=== PATIENT | male | born 1950 | race Two or more races ===

== ENCOUNTER 2023-04-10 12:45 | Inpatient (IN) | payer OTHER ==
[~2023-04-10] VITALS: Ht 175.3 cm; Wt 84.4 kg
[~2023-04-10 12:45] MED LIST: REGLAN 10 MG PO
[2023-04-11] MEDS ORDERED: NP THYROID15 MG PO (17:21)
[2023-04-11] MEDS ORDERED: COZAAR25 MG PO (17:26)
[2023-04-16] MEDS ORDERED: METRONIDAZOLE/SODIUM CHLORIDE 500 MG/100 ML PIGGYBACK IV ONE ×2 (11:26→16:30)
[2023-04-16] MEDS ORDERED: SYNTHROID75 MCG (11:32)
[2023-04-16] MEDS ORDERED: AMLODIPINE-ATO1 EAC1 (11:33)
[2023-04-16] MEDS ORDERED: ZESTRIL2.5 MG (11:34)
[2023-04-16] MEDS ORDERED: LIDOCAINE HCL 1%/Epi 20ML VIAL IJ ONE (14:13)
[2023-04-16] MEDS ORDERED: BUPIVACAINE HCL/PF 0.5% 30ML ML ONE (14:13)
[2023-04-16] MEDS ORDERED: POVIDONE-IODINE 118 ML BOTT TOP ONE ×2 (14:53→16:30)
[2023-04-16] MEDS ORDERED: 0.9 % SODIUM CHLORIDE 1,000 ML IV SCH (16:30)
[2023-04-16] MEDS ORDERED: OxyCODONE HCL 5 MG TABLET (ROXICODONE) PO PRN (16:30)
[2023-04-16] MEDS ORDERED: LIDOCAINE HCL/EPINEPHRINE 10 ML VIAL IJ ONE (16:30)
[2023-04-16] MEDS ORDERED: ONDANSETRON HCL 2 MG/ML VIAL IV PRN (16:30)
[2023-04-16] MEDS ORDERED: levoFLOXacin IN DEXTROSE 5 % 5 MG/ML PIGGYBAG IV ONE (16:30)
[2023-04-16] MEDS ORDERED: BUPIVACAINE HCL/PF 0.25% 30ML VIAL InF ONE (16:30)
[2023-04-16] MEDS ORDERED: MORPHINE SULFATE 4 MG/ML VIAL IV PRN (16:30)
[2023-04-16] MEDS ORDERED: GABAPENTIN 300 MG CAPSULE PO SCH (17:00)
[2023-04-16] MEDS ORDERED: ENALAPRILAT DIHYDRATE 1.25 MG/ML VIAL IV PRN (18:30)
[2023-04-16 18:45] LABS: ABG PH 7.419 (7.35-7.45); ABG PO2 136.7 mmHg (80-100); ABG pCO2 38.4 mmHg (35-45); BASE EXCESS 0.1 mmol/l; BICARBONATE 24.3 mmol/l (23-25); SaO2 99.1 %; Tco2 25.5 mmol/l; allen test SATISFACTORY; o2 40 %; puncture site RADIAL LEFT
[2023-04-16] MEDS ORDERED: ACETAMINOPHEN 500 MG GEL..CAP PO SCH (20:00)
[2023-04-16] MEDS ORDERED: FAMOTIDINE/PF 20 MG/2 ML VIAL IV PUSH SCH (21:00)
[2023-04-16] MEDS ORDERED: LISINOPRIL 10 MG TABLET PO SCH (21:00)
[2023-04-17] MEDS ORDERED: PATIENTS OWN MEDICATION (MEDICAMENTO EN PISO) PO SCH ×2 (06:00→09:00)
[2023-04-17 07:06] LABS: HEMATOCRIT 41.7 % (39.0-48.0); HEMOGLOBIN 13.7 g/dL (13-16.00); MEAN CELL VOLUME 82.9 fL (80.0-100.00); MEAN CORPUSCULAR HEMOGLOBIN 27.1 pg (27.00-32.0); MEAN CORPUSCULAR HGB CONC 32.7 g/dl (32.0-36.0); PLATELET COUNT 151 K/uL (150-450); RED BLOOD COUNT 5.03 M/uL (4.00-6.00); RED CELL DISTRIBUTION WIDTH 15.6 % (11.5-14.5)
[2023-04-17 07:14] LABS: ALBUMIN 3.1 gm/dL (3.4-5.0); CALCIUM 8.8 mg/dL (8.5-10.1); CREATININE SERUM 0.94 mg/dL (0.70-1.30); GFR 78.45; POTASSIUM 3.83 mEq/L (3.5-5.1)
[2023-04-17] MEDS ORDERED: AMLODIPINE BESYLATE 5 MG TABLET PO SCH (09:00)
[2023-04-17] MEDS ORDERED: LEVOTHYROXINE SODIUM 75 MCG TABLET PO SCH (09:00)
[2023-04-18 07:14] LABS: HEMATOCRIT 39.4 % (39.0-48.0); HEMOGLOBIN 13.3 g/dL (13-16.00); MEAN CELL VOLUME 82.7 fL (80.0-100.00); MEAN CORPUSCULAR HEMOGLOBIN 27.9 pg (27.00-32.0); MEAN CORPUSCULAR HGB CONC 33.7 g/dl (32.0-36.0); RED BLOOD COUNT 4.76 M/uL (4.00-6.00); RED CELL DISTRIBUTION WIDTH 15.3 % (11.5-14.5)
[2023-04-18 07:25] LABS: CALCIUM 8.4 mg/dL (8.5-10.1); CREATININE SERUM 0.85 mg/dL (0.70-1.30); GFR 88.11; MAGNESIUM 1.8 mg/dL (1.8-2.4); PHOSPHOROUS 2.7 mg/dL (2.5-4.9); POTASSIUM 3.55 mEq/L (3.5-5.1)
[2023-04-18 08:04] LABS: PLATELET COUNT 134 K/uL (150-450)
[2023-04-18] MEDS ORDERED: ENOXAPARIN SODIUM 40 MG/0.4 ML SYRINGE SUBCUTANEO SCH (09:00)
[2023-04-18] MEDS ORDERED: NA PHOS,M-B/NA PHOS,DI-BA 1 BOTTLE ENEMA RECTAL ONE (10:20)
[2023-04-18] MEDS ORDERED: METRONIDAZOLE/SODIUM CHLORIDE 500 MG/100 ML PIGGYBACK IV ONE ×2 (12:28→14:00)
[2023-04-18] MEDS ORDERED: levoFLOXacin IN DEXTROSE 5 % 5 MG/ML PIGGYBAG IV ONE ×2 (12:29→14:00)
[2023-04-18] MEDS ORDERED: CHLORHEXIDINE GLUCONATE 120 ML BOTTLE TOP ONE ×2 (13:12→14:00)
[2023-04-18] MEDS ORDERED: OxyCODONE HCL 5 MG TABLET (ROXICODONE) PO PRN (18:00)
[2023-04-18] MEDS ORDERED: ONDANSETRON HCL 2 MG/ML VIAL IV PRN (18:00)
[2023-04-18] MEDS ORDERED: MORPHINE SULFATE 4 MG/ML CARTRIDGE IV PRN (18:00)
[2023-04-18] MEDS ORDERED: VISTASEAL DUAL APPICATOR 1 EACH APPL TOP ONE (18:16)
[2023-04-18] MEDS ORDERED: THROMBIN,HU/FIBRINOGEN/CALCIUM 10 ML SYRINGE TOP ONE ×2 (18:16→18:30)
[2023-04-18] MEDS ORDERED: SUGAMMADEX SODIUM 200 MG/2 ML VIAL IV ONE (18:57)
[2023-04-18] MEDS ORDERED: ACETAMINOPHEN 500 MG GEL..CAP PO SCH (20:00)
[2023-04-18] MEDS ORDERED: FAMOTIDINE/PF 20 MG/2 ML VIAL IV PUSH SCH (21:00)
[2023-04-19] MEDS ORDERED: METOCLOPRAMIDE HCL 5 MG/ML VIAL IV SCH (01:00)
[2023-04-19] MEDS ORDERED: GABAPENTIN 300 MG CAPSULE PO SCH (01:00)
[2023-04-19 04:31] LABS: HEMATOCRIT 38.6 % (39.0-48.0); HEMOGLOBIN 12.9 g/dL (13-16.00); MEAN CORPUSCULAR HGB CONC 33.4 g/dl (32.0-36.0); PLATELET COUNT 128 K/uL (150-450); RED BLOOD COUNT 4.77 M/uL (4.00-6.00); RED CELL DISTRIBUTION WIDTH 15.6 % (11.5-14.5)
[2023-04-19 07:34] LABS: ALBUMIN 2.3 gm/dL (3.4-5.0); CALCIUM 7.8 mg/dL (8.5-10.1); CREATININE SERUM 0.93 mg/dL (0.70-1.30); GFR 79.42; MAGNESIUM 1.5 mg/dL (1.8-2.4); PHOSPHOROUS 4.2 mg/dL (2.5-4.9); POTASSIUM 3.88 mEq/L (3.5-5.1)
[2023-04-19] MEDS ORDERED: FAMOTIDINE/PF 20 MG/2 ML VIAL ONE (07:49)
[2023-04-19] MEDS ORDERED: ACETAMINOPHEN 500 MG GEL..CAP PO ONE (07:49)
[2023-04-19] MEDS ORDERED: HYOSCYAMINE SULFATE 0.125 MG TAB.SUBL ONE (07:49)
[2023-04-19] MEDS ORDERED: GABAPENTIN 300 MG CAPSULE PO ONE (07:49)
[2023-04-19] MEDS ORDERED: TAMSULOSIN HCL 0.4 MG CAP PO SCH (09:00)
[2023-04-19] MEDS ORDERED: LACTOBACILLUS ACIDOPHILUS 1 CAP CAP PO SCH (09:00)
[2023-04-19] MEDS ORDERED: HYOSCYAMINE SULFATE 0.125 MG TAB.SUBL SL SCH (09:00)
[2023-04-19 10:29] LABS: HEMATOCRIT 37.3 % (39.0-48.0); HEMOGLOBIN 12.5 g/dL (13-16.00); MEAN CELL VOLUME 81.1 fL (80.0-100.00); MEAN CORPUSCULAR HEMOGLOBIN 27.2 pg (27.00-32.0); MEAN CORPUSCULAR HGB CONC 33.5 g/dl (32.0-36.0); RED CELL DISTRIBUTION WIDTH 15.5 % (11.5-14.5)
[2023-04-19 10:30] LABS: PLATELET COUNT 129 K/uL (150-450)
[2023-04-19 11:05] LABS: MANUAL PLATELET COUNT 184
[2023-04-19] MEDS ORDERED: POLYETHYLENE GLYCOL 3350 17 GM BLIST.PACK PO SCH (17:00)
[2023-04-19] MEDS ORDERED: ENOXAPARIN SODIUM 40 MG/0.4 ML SYRINGE SUBCUTANEO SCH (17:00)
[2023-04-20 08:14] LABS: HEMATOCRIT 34.9 % (39.0-48.0); HEMOGLOBIN 11.6 g/dL (13-16.00); MEAN CELL VOLUME 82.6 fL (80.0-100.00); MEAN CORPUSCULAR HEMOGLOBIN 27.4 pg (27.00-32.0); MEAN CORPUSCULAR HGB CONC 33.2 g/dl (32.0-36.0); RED BLOOD COUNT 4.23 M/uL (4.00-6.00); RED CELL DISTRIBUTION WIDTH 15.5 % (11.5-14.5)
[2023-04-20 08:30] LABS: PLATELET COUNT 113 K/uL (150-450)
[2023-04-20] MEDS ORDERED: ENOXAPARIN SODIUM 40 MG/0.4 ML SYRINGE SUBCUTANEO SCH (09:00)
[2023-04-20 09:03] LABS: CALCIUM 8.2 mg/dL (8.5-10.1); CREATININE SERUM 1.03 mg/dL (0.70-1.30); GFR 70.59; MAGNESIUM 1.8 mg/dL (1.8-2.4); PHOSPHOROUS 2.6 mg/dL (2.5-4.9); POTASSIUM 3.96 mEq/L (3.5-5.1)
[2023-04-21 20:43] LABS: HEMATOCRIT 34.9 % (39.0-48.0); HEMOGLOBIN 11.4 g/dL (13-16.00); MEAN CELL VOLUME 82.5 fL (80.0-100.00); MEAN CORPUSCULAR HEMOGLOBIN 26.9 pg (27.00-32.0); MEAN CORPUSCULAR HGB CONC 32.7 g/dl (32.0-36.0); PLATELET COUNT 158 K/uL (150-450); RED BLOOD COUNT 4.23 M/uL (4.00-6.00); RED CELL DISTRIBUTION WIDTH 15.2 % (11.5-14.5)
[2023-04-22 08:02] LABS: HEMATOCRIT 34.2 % (39.0-48.0); HEMOGLOBIN 11.5 g/dL (13-16.00); MEAN CELL VOLUME 80.3 fL (80.0-100.00); MEAN CORPUSCULAR HGB CONC 33.6 g/dl (32.0-36.0); PLATELET COUNT 152 K/uL (150-450); RED BLOOD COUNT 4.26 M/uL (4.00-6.00)
[2023-04-22] MEDS ORDERED: DEXTROSE 10 % IN WATER 500 ML IV SCH (15:15)
[2023-04-22] MEDS ORDERED: AA 4.25%/CAL/LYTES/DEXT 5% 1,000 ML PERIFERAL SCH (17:00)
[2023-04-22 18:07] LABS: CHOL HDL RATIO 2.7 (0-5.0); CREATININE SERUM 0.67 mg/dL (0.70-1.30); GFR 115.95; POTASSIUM 3.23 mEq/L (3.5-5.1)
[2023-04-22] MEDS ORDERED: BENZONATATE 100 MG CAPSULE PO SCH (18:30)
[2023-04-23 05:34] LABS: HEMATOCRIT 33.3 % (39.0-48.0); HEMOGLOBIN 11.1 g/dL (13-16.00); MEAN CELL VOLUME 81.4 fL (80.0-100.00); MEAN CORPUSCULAR HEMOGLOBIN 27.1 pg (27.00-32.0); MEAN CORPUSCULAR HGB CONC 33.3 g/dl (32.0-36.0); PLATELET COUNT 159 K/uL (150-450); RED BLOOD COUNT 4.09 M/uL (4.00-6.00)
[2023-04-23 05:46] LABS: INR 1.03; PARTIAL THROMBOPLASTIN TIME 30.9 SECONDS (22.0-34.0); PROTHROMBIN TIME 10.8 SECONDS (9.0-11.5)
[2023-04-23 05:59] LABS: ALBUMIN 2.2 gm/dL (3.4-5.0); BILIRUBIN TOTAL 0.43 mg/dL (0.3-1.2); BILIRUBIN,CONJUGATED 0.13 mg/dL (0.0-0.2); BILIRUBIN,UNCONJUGATED 0.3 mg/dL (0.0-0.6); CALCIUM 7.8 mg/dL (8.5-10.1); CHOL HDL RATIO 2.8 (0-5.0); CREATININE SERUM 0.63 mg/dL (0.70-1.30); GFR 124.49; GLOBULINA 2.6 G/DL (2.4-3.5); MAGNESIUM 1.8 mg/dL (1.8-2.4); POTASSIUM 3.22 mEq/L (3.5-5.1); TOTAL PROTEIN 4.8 gm/dL (6.4-8.2)
[2023-04-23] MEDS ORDERED: LOPERAMIDE HCL 2 MG CAPSULE PO SCH (09:00)
[2023-04-23] MEDS ORDERED: BENZONATATE 200 MG CAPSULE PO SCH (09:00)
[2023-04-23] MEDS ORDERED: POTASSIUM CHLORIDE 20MEQ/100ML H2O PB IV ONE (11:45)
[2023-04-23] MEDS ORDERED: MAGNESIUM SULFATE IN WATER 50 ML IV ONE (11:45)
[2023-04-24] MEDS ORDERED: OxyCODONE HCL 5 MG TABLET (ROXICODONE) PO PRN (07:15)
[2023-04-24 07:30] LABS: CALCIUM 7.7 mg/dL (8.5-10.1); CREATININE SERUM 0.68 mg/dL (0.70-1.30); GFR 113.99; PHOSPHOROUS 2.4 mg/dL (2.5-4.9); POTASSIUM 3.23 mEq/L (3.5-5.1)
[2023-04-24 07:49] LABS: UREA CLEARANCE 38.6 ML/MIN
[2023-04-24] MEDS ORDERED: PERCOCET 5-3251 EACH PO (08:15)
[2023-04-24] MEDS ORDERED: NEURONTIN300 MG PO (08:16)
[2023-04-24] MEDS ORDERED: IMODIUM A-D2 M2 PO (08:17)
[2023-04-24] MEDS ORDERED: LOPERAMIDE HCL 2 MG CAPSULE PO SCH (09:00)
== END 2023-04-24 14:19 | disposition home or self-care (01) | DRG 329 ==
LOC: SURH 04-16 07:00 → O/R 04-16 08:53 → SURH 04-16 12:45
PROVIDERS: Colon & Rectal Surgery; Internal Medicine Geriatric Medicine; Specialist; ADMIT Surgery; ATTEND Surgery
PROC: 0DJD4ZZ Inspection of Lower Intestinal Tract, Percutaneous Endoscopic Approach (ICD-10-PCS; 2023-04-16)
PROC: BW21YZZ Computerized Tomography (CT Scan) of Abdomen and Pelvis using Other Contrast (ICD-10-PCS; 2023-04-16)
PROC: BW30YZZ Magnetic Resonance Imaging (MRI) of Abdomen using Other Contrast (ICD-10-PCS; 2023-04-16)
PROC: 4A12X4Z Monitoring of Cardiac Electrical Activity, External Approach (ICD-10-PCS; 2023-04-17)
PROC: 0DTP0ZZ Resection of Rectum, Open Approach (ICD-10-PCS; 2023-04-18)
PROC: 0DTN0ZZ Resection of Sigmoid Colon, Open Approach (ICD-10-PCS; 2023-04-18)
PROC: 0DTQ0ZZ Resection of Anus, Open Approach (ICD-10-PCS; 2023-04-18)
PROC: 0DNW0ZZ Release Peritoneum, Open Approach (ICD-10-PCS; 2023-04-18)
PROC: 0T788DZ Dilation of Bilateral Ureters with Intraluminal Device, Via Natural or Artificial Opening Endoscopic (ICD-10-PCS; 2023-04-18)
PROC: 0D1B0Z4 Bypass Ileum to Cutaneous, Open Approach (ICD-10-PCS; principal; 2023-04-18 13:00)
DX: D12.8 Benign neoplasm of rectum (principal); K68.2 Retroperitoneal fibrosis; K62.5 Hemorrhage of anus and rectum; R59.0 Localized enlarged lymph nodes; I10 Essential (primary) hypertension; D64.9 Anemia, unspecified; G47.30 Sleep apnea, unspecified; K66.0 Peritoneal adhesions (postprocedural) (postinfection)
CPT/HCPCS: 72198; 74185

== ENCOUNTER 2023-11-22 12:00 | Inpatient (IN) | payer OTHER ==
[~2023-11-22] VITALS: Ht 175.3 cm; Wt 85.7 kg
[~2023-11-22 12:00] MED LIST changes: +AMLODIPINE-ATO1 EAC1; +AMLODIPINE-OLM1 EACH; +COZAAR25 MG PO; +IMODIUM A-D2 M2 PO; +NEURONTIN300 MG PO; +NP THYROID15 MG PO; +PERCOCET 5-3251 EACH PO; +SYNTHROID75 MCG; +TRAM1TAB98 PO; +ZESTRIL2.5 MG; +ZESTRIL20 MG PO
[2023-11-22] MEDS ORDERED: ATORVASTATIN CA10 MG PO (13:49)
[2023-11-22] MEDS ORDERED: AMLODIPINE-OLM1 EACH PO (13:49)
[2023-11-26] MEDS ORDERED: LISINOPRIL20 MG (08:56)
[2023-11-26] MEDS ORDERED: levoFLOXacin IN DEXTROSE 5 % 5 MG/ML PIGGYBAG IV ONE (09:30)
[2023-11-26] MEDS ORDERED: METRONIDAZOLE/SODIUM CHLORIDE 200 ML IV ONE (09:30)
[2023-11-26] MEDS ORDERED: SUGAMMADEX SODIUM 200 MG/2 ML VIAL IV ONE (10:45)
[2023-11-26] MEDS ORDERED: RINGERS SOLUTION,LACTATED 1,000 ML IV SCH (11:00)
[2023-11-26] MEDS ORDERED: OxyCODONE HCL 5 MG TABLET (ROXICODONE) PO PRN (11:00)
[2023-11-26] MEDS ORDERED: MORPHINE SULFATE 4 MG/ML CARTRIDGE IV PRN (11:00)
[2023-11-26] MEDS ORDERED: ONDANSETRON HCL 2 MG/ML VIAL IV PRN (11:00)
[2023-11-26] MEDS ORDERED: HYOSCYAMINE SULFATE 0.125 MG TAB.SUBL SL PRN (11:00)
[2023-11-26] MEDS ORDERED: MORPHINE SULFATE 4 MG/ML VIAL IV ONE ×2 (11:25→11:55)
[2023-11-26] MEDS ORDERED: KETOROLAC TROMETHAMINE 30 MG VIAL IV SCH (12:00)
[2023-11-26] MEDS ORDERED: SIMETHICONE 125 MG CAPSULE PO SCH (13:00)
[2023-11-26] MEDS ORDERED: ACETAMINOPHEN 500 MG GEL..CAP PO SCH (14:00)
[2023-11-26 14:20] VITALS: BP 163/74; O2SAT 97
[2023-11-26 16:52] VITALS: BP 137/64; O2SAT 95
[2023-11-26] MEDS ORDERED: GABAPENTIN 300 MG CAPSULE PO SCH (17:00)
[2023-11-26] MEDS ORDERED: METOCLOPRAMIDE HCL 5 MG/ML VIAL IV SCH (17:00)
[2023-11-26] MEDS ORDERED: ENALAPRILAT DIHYDRATE 1.25 MG/ML VIAL IV PRN (18:15)
[2023-11-26 19:40] LABS: ABG PH 7.386 (7.35-7.45); ABG PO2 66.3 mmHg (80-100); ABG pCO2 44.5 mmHg (35-45); BASE EXCESS 0.7 mmol/l; BICARBONATE 26.1 mmol/l (23-25); SaO2 92.5 %; Tco2 27.4 mmol/l
[2023-11-26 19:55] LABS: allen test SATISFACTORY; o2 21 %; puncture site RADIAL RIGHT
[2023-11-26] MEDS ORDERED: FAMOTIDINE/PF 20 MG/2 ML VIAL IV PUSH SCH (21:00)
[2023-11-27 00:37] VITALS: BP 179/83; O2SAT 98
[2023-11-27] MEDS ORDERED: SYNTHROID BRAND ONLY PO SCH (06:00)
[2023-11-27 06:27] LABS: HEMATOCRIT 36.6 % (39.0-48.0); HEMOGLOBIN 12.3 g/dL (13-16.00); MEAN CELL VOLUME 82.8 fL (80.0-100.00); MEAN CORPUSCULAR HEMOGLOBIN 27.7 pg (27.00-32.0); MEAN CORPUSCULAR HGB CONC 33.5 g/dl (32.0-36.0); RED BLOOD COUNT 4.43 M/uL (4.00-6.00); RED CELL DISTRIBUTION WIDTH 17.4 % (11.5-14.5)
[2023-11-27 06:29] LABS: PLATELET COUNT 98 K/uL (150-450)
[2023-11-27 06:57] LABS: ALBUMIN 3.1 gm/dL (3.4-5.0); CALCIUM 7.9 mg/dL (8.5-10.1); CREATININE SERUM 0.92 mg/dL (0.70-1.30); GFR 80.2; MAGNESIUM 1.6 mg/dL (1.8-2.4); PHOSPHOROUS 2.6 mg/dL (2.5-4.9); POTASSIUM 3.4 mEq/L (3.5-5.1)
[2023-11-27] MEDS ORDERED: NEURONTIN300 MG PO (08:08)
[2023-11-27] MEDS ORDERED: CELECOXIB200 MG PO (08:08)
[2023-11-27 08:59] VITALS: BP 144/63; O2SAT 95
[2023-11-27] MEDS ORDERED: AMLODIPINE BESYLATE 5 MG TABLET PO SCH (09:00)
[2023-11-27] MEDS ORDERED: LISINOPRIL 10 MG TABLET PO SCH (09:00)
[2023-11-27] MEDS ORDERED: ATORVASTATIN CALCIUM 20 MG TABLET PO SCH (17:00)
[2023-11-27] MEDS ORDERED: ENOXAPARIN SODIUM 40 MG/0.4 ML SYRINGE SUBCUTANEO SCH (17:00)
[2023-11-28] MEDS ORDERED: PATIENTS OWN MEDICATION (MEDICAMENTO EN PISO) PO SCH (06:00)
[2023-11-28] MEDS ORDERED: ENOXAPARIN SODIUM 40 MG/0.4 ML SYRINGE SUBCUTANEO SCH (09:00)
== END 2023-11-27 16:14 | disposition home or self-care (01) | DRG 337 ==
LOC: SURG 11-26 06:25 → O/R 11-26 06:25 → SURG 11-26 11:41 → SURH 11-26 12:00 → SURG 11-27 16:14
PROVIDERS: Internal Medicine Geriatric Medicine; ADMIT Surgery; ATTEND Surgery
PROC: 0DN84ZZ Release Small Intestine, Percutaneous Endoscopic Approach (ICD-10-PCS; 2023-11-26)
PROC: 0WUF4JZ Supplement Abdominal Wall with Synthetic Substitute, Percutaneous Endoscopic Approach (ICD-10-PCS; principal; 2023-11-26 07:00)
DX: K43.3 Parastomal hernia with obstruction, without gangrene (principal); K66.0 Peritoneal adhesions (postprocedural) (postinfection); Z20.822 Contact with and (suspected) exposure to COVID-19

== ENCOUNTER 2023-11-23 09:42 | Outpatient (CLI) | payer OTHER ==
[~2023-11-23 09:42] MED LIST changes: +AMLODIPINE-OLM1 EACH PO; +ATORVASTATIN CA10 MG PO
[2023-11-23 11:34] LABS: COL EPI 103 SECONDS (82-175)
== END 2023-11-23 09:50 | disposition home or self-care (01) ==
LOC: LAB 09:42
PROVIDERS: ATTEND Surgery
DX: D69.6 Thrombocytopenia, unspecified (principal); D68.9 Coagulation defect, unspecified